=== PATIENT | male | born 1970 | race Caucasian/White ===

== ENCOUNTER 2024-10-13 10:12 | Emergency (ER) | payer BC ==
[~2024-10-13] VITALS: Ht 185.4 cm; Wt 99.8 kg
[2024-10-13 10:14] VITALS: BP 143/81; TEMP 98.3
[2024-10-13 10:56] VITALS: O2SAT 99
== END 2024-10-13 10:57 | disposition home or self-care (01) ==
LOC: ER 10:24
DX: S01.552A Open bite of oral cavity, initial encounter (principal); E78.5 Hyperlipidemia, unspecified; X58.XXXA Exposure to other specified factors, initial encounter; Y93.89 Activity, other specified; Y92.89 Other specified places as the place of occurrence of the external cause; Y99.8 Other external cause status